=== PATIENT | female | born 1980 | race Caucasian/White ===

== ENCOUNTER 2019-01-24 07:11 | Inpatient (IN) | payer MEDICAID ==
[~2019-01-24] VITALS: Ht 162.6 cm; Wt 87.1 kg
[2019-01-24 08:13] VITALS: BP 110/68; PULSE 86; RESP 18
[2019-01-24 08:14] VITALS: Ht 162.6 cm; Wt 87.1 kg
[2019-01-24] MEDS ORDERED: PREN-93 PO (08:16)
[2019-01-24] MEDS ORDERED: OXYTOCIN 30 UNITS/LR 500 ML IV PRN (08:30)
[2019-01-24] MEDS ORDERED: OXYTOCIN 30 UNITS/LR 500 ML IV SCH ×3 (08:30→22:45)
[2019-01-24] MEDS ORDERED: LIDOCAINE 1% (MPF) 30 ML INJ INJ PRN (08:30)
[2019-01-24] MEDS ORDERED: METHYLERGONOVINE 0.2 MG INJ IM PRN (08:30)
[2019-01-24] MEDS ORDERED: CARBOPROST 250 MCG INJ IM PRN (08:30)
[2019-01-24] MEDS ORDERED: BUTORPHANOL 2 MG INJ IV PRN (08:30)
[2019-01-24] MEDS ORDERED: MISOPROSTOL 200 MCG TAB PR PRN (08:30)
[2019-01-24] MEDS ORDERED: IBUPROFEN 600 MG TAB PO PRN (08:30)
[2019-01-24] MEDS ORDERED: AMPICILLIN 2 GM/NS (PMX) 100 ML IV ONE (08:30)
[2019-01-24] MEDS: LACTATED RINGER'S 1,000 ML IV SCH ×4 (10:00→22:35)
[2019-01-24] MEDS ORDERED: MISOPROSTOL 50 MCG CAPSULE PO SCH (11:00)
[2019-01-24] MEDS: DEXTROSE 5%-LR 1,000 ML IV SCH ×2 (12:59→22:31)
[2019-01-24] MEDS ORDERED: ACCU-CHEK XX SCH (13:30)
[2019-01-24] MEDS: AMPICILLIN 1 GM/NS (PMX) 50 ML IV SCH ×3 (15:00→22:59)
--- NOTE | 2019-01-24 23:44 | HP ---
Date/Time of Note Date/Time of Note DATE: 01/24/19 TIME: 23:40 OB - History Hx of Present Chief Complaint: induction of labor Estimated Due Date: Jan 23, 2019 : 3 Para: 2 Spontaneous : 0 Therapeutic : 0 Care: Good Care Ultrasounds: Normal mid trimester US Obstetrical Complications: Gestational Diabetes Medical Complications: None Past Family/Social History * Past Medical, Surgical, Family and Obstetric Histories reviewed from chart. GBS Status: Positive OB Admission Exam Vital Signs Vital Signs Vital Signs Date Temp Pulse Resp B/P (MAP) Pulse Ox O2 O2 Flow FiO2 Time Delivery Rate 01/24/19 98.1 86 18 110/68 Room Air 08:13 (82) Physical Exam HEENT: WNL Heart: Rhythm Normal Lungs: Clear, Equal Abdomen: WNL Extremities: Normal Reflexes: Normal Cervical Dilatation: 1cm Effacement: 50% Station: -1 Membranes: Intact Heart Rate: 120's Accelerations: Accelerations Present Decelerations: No Decelerations Varibility: Moderate Last 72 hourBlood Glucose Bedside Glucose - 72 Hours Test 01/24/19 08:46 01/24/19 12:58 01/24/19 14:50 01/24/19 17:06 Bedside 87 73 82 82 Glucose mg/dL (70-220) mg/dL (70-220) mg/dL (70-220) mg/dL (70-220) Test 01/24/19 19:01 01/24/19 21:06 Bedside 82 87 Glucose mg/dL (70-220) mg/dL (70-220) Last 72 hours Lab Results CBC & BMP 01/24/19 07:50 OB Assessment/Plan Reason for admission: induction of labor Plan: Induction Induction Method: per Misoprostol Protocol VIRGINIA MORENO MD Jan 24, 2019 23:44
[2019-01-25] MEDS: LACTATED RINGER'S 1,000 ML IV SCH ×2 (00:04→04:56)
[2019-01-25] MEDS: AMPICILLIN 1 GM/NS (PMX) 50 ML IV SCH (03:22)
--- NOTE | 2019-01-25 03:57 | PREAC ---
Date/Time of Note Date/Time of Note DATE: 01/25/19 TIME: 03:56 Anesthesia Eval and Record Evaluation Time Pre-Procedure Interview DATE: 01/25/19 TIME: 03:56 Age 38 Sex female NPO: 8 hrs Preoperative diagnosis intrauterine Planned procedure labor epidural Past Medical History Past Medical History: Includes : : (3), Para: (2), Gestational age: (40.2), Gestational diabetes Surgery & Anesthesia Issues No known issue Meds Anticoagulation: No Beta Johny within 24 hr: No Reason Beta Johny not given: Pt. not on B-Johny Reported Medications Vit No.124/Iron/FA ( Vitamin Tablet) 1 Each Tablet, 1 EACH PO DAILY, TAB 01/24/19 Current Medications Lactated Ringer's 1,000 ml @ 125 mls/hr Q8H IV Last administered on 01/24/19at 10:00; Admin Dose 125 MLS/HR; Start 01/24/19 at 08:04 Ampicillin 50 ml @ 100 mls/hr Q4H IV Last administered on 01/25/19at 03:22; Admin Dose 100 MLS/HR; Start 01/24/19 at 12:30 Butorphanol Tartrate (Stadol) 2 mg Q2H PRN IV .PAIN; Start 01/24/19 at 08:30 Lidocaine (Xylocaine 1% (Mpf)) 30 ml ONCE PRN INJ .EPISIOTOMY; Start 01/24/19 at 08:30 Oxytocin/Lactated Ringer's 500 ml @ 500 mls/hr ONCE POST IV ; Start 01/24/19 at 08:30 Oxytocin/Lactated Ringer's 500 ml @ 125 mls/hr POST IV ; Start 01/24/19 at 08:30 Ibuprofen (Motrin) 600 mg ONCE PRN PO .PAIN 1-5; Start 01/24/19 at 08:30 Oxytocin/Lactated Ringer's 500 ml @ 0 mls/hr ONCE PRN IV .VAGINAL BLEEDING; Start 01/24/19 at 08:30 Methylergonovine Maleate (Methergine) 0.2 mg ONCE PRN IM .VAGINAL BLEEDING; Start 01/24/19 at 08:30 Carboprost Tromethamine (Hemabate) 250 mcg ONCE PRN IM .VAGINAL BLEEDING; Start 01/24/19 at 08:30 Misoprostol (Cytotec) 1,000 mcg ONCE PRN DE .VAGINAL BLEEDING; Start 01/24/19 at 08:30 Diagnostic Test (Pha) (Accu-Chek) 1 ea FBSPP XX ; Start 01/24/19 at 13:30 Lactated Ringer's 1,000 ml @ 125 mls/hr Q8H IV ; Start 01/24/19 at 12:36 Dextrose/Lactated Ringer's 1,000 ml @ 125 mls/hr Q8H IV Last administered on 01/24/19at 22:31; Admin Dose 125 MLS/HR; Start 01/24/19 at 12:36 Oxytocin/Lactated Ringer's 500 ml @ 0 mls/hr FOR AUGMENTATION IV Last administered on 01/24/19at 22:54; Admin Dose 1 MLS/HR; Start 01/24/19 at 22:45 Meds reviewed: Yes Allergies Coded Allergies: No Known Allergy (Unverified , 01/24/19) Allergies Reviewed: Yes Labs/Studies Labs Reviewed: Reviewed by anesthesiologist Result Diagram: 01/24/19 0750 Laboratory Tests 01/24/19 07:50 Blood Bank Test 01/24/19 07:50 Antibody Screen NEGATIVE Blood Type A POSITIVE Rh Immune Globulin Candidate NO test: N/A Pre-procedure Exam Last vitals Vital Signs Date Temp Pulse Resp B/P (MAP) Pulse Ox O2 O2 Flow FiO2 Time Delivery Rate 01/24/19 98.1 86 18 110/68 Room Air 08:13 (82) Airway: Adequate mouth opening, Adequate thyromental dist Mallampati: Mallampati II Teeth: Normal Lung: Normal Heart: Normal ASA Physical Status ASA physical status: 2 Emergency: None Planned Anesthetic Neuraxial: Epidural Planned Pain Management Epidural, Parenteral pain med Pre-operative Attestations Prior to commencing anesthesia and surgery, the patient was re-evaluated, there was verification of: *The patient's identity *The results of appropriate recent lab work and preoperative vital signs *The above evaluation not changing prior to induction *Anesthetic plan, risk benefits, alternative and complications discussed with patient/family; questions answered; patient/family understands, accepts and wishes to proceed. TERRENCE RODRIGUEZ MD Jan 25, 2019 03:57
[2019-01-25] MEDS ORDERED: DIPHENHYDRAMINE 50 MG INJ IV PRN (04:00)
[2019-01-25] MEDS ORDERED: NALOXONE (0.4 MG/ML) INJ IV PRN (04:00)
[2019-01-25] MEDS ORDERED: ONDANSETRON 4 MG INJ IV PRN (04:00)
[2019-01-25] MEDS ORDERED: FENTAnyl 2MCG/ML-ROPIV 0.2% 100 ML BAG EPI SCH (04:00)
[2019-01-25] MEDS ORDERED: FENTAnyl 2MCG/ML-ROPIV 0.2% 100 ML ONE (04:06)
--- NOTE | 2019-01-25 05:38 | PAC ---
Date/Time of Note Date/Time of Note DATE: 01/25/19 TIME: 05:38 Post-Anesthesia Notes Post-Anesthesia Note Last documented vital signs Vital Signs Date Temp Pulse Resp B/P (MAP) Pulse Ox O2 O2 Flow FiO2 Time Delivery Rate 01/24/19 98.1 86 18 110/68 Room Air 08:13 (82) Activity: WNL Respiratory function: WNL Cardiovascular function: WNL Mental status: Baseline Pain reasonably controlled: Yes Hydration appropriate: Yes Nausea/Vomiting absent: Yes Comments Bp: 103/62 HR: 78 RR: 15 T: 98 SaO2: 99% TERRENCE RODRIGUEZ MD Jan 25, 2019 05:38
--- NOTE | 2019-01-25 07:46 | LDN ---
Date/Time of Note Date/Time of Note DATE: 01/25/19 TIME: 07:45 Delivery Summary Weeks of Gestation 40 weeks and 2 days Placenta Delivered: Spontaneously Meconium: none Episiotomy: No Anesthesia type: Epidural Estimated blood loss: 100 Sponge & Needle done & correct: Yes All needle counts correct: Yes Any foreign bodies felt in the: No Delivery Information Sex Sex: female Apgars 1 Minute: 9 5 Minute: 9 Suctioning Nose & mouth suctioned at loyda: No Delee suction performed: No Umbilical Cord Umbilical cord with: 3 Vessels Cord presentations: no nuchal cord Cord Blood was obtained: Yes Mother & Baby Disposition Disposition Mom & Baby to Maternity; Good: Yes VIRGINIA MORENO MD Jan 25, 2019 07:46
[2019-01-25] MEDS: LACTATED RINGER'S 1,000 ML IV* SCH ×2 (09:43→17:43)
[2019-01-25 09:50] VITALS: BP 105/58; PULSE 87; RESP 18
[2019-01-25] MEDS ORDERED: MISOPROSTOL 200 MCG TAB PR PRN (10:00)
[2019-01-25] MEDS ORDERED: OXYTOCIN 30 UNITS/LR 500 ML IV PRN (10:00)
[2019-01-25] MEDS ORDERED: CARBOPROST 250 MCG INJ IM PRN (10:00)
[2019-01-25] MEDS ORDERED: BENZOCAINE 20% 56 ML SPRAY TOP PRN (10:00)
[2019-01-25] MEDS ORDERED: METHYLERGONOVINE 0.2 MG INJ IM PRN (10:00)
[2019-01-25] MEDS ORDERED: DIBUCAINE 1% 30 GM OINT TOP PRN (10:00)
[2019-01-25] MEDS ORDERED: HYDROCODONE/APAP (5/325) TAB PO PRN (10:00)
[2019-01-25] MEDS ORDERED: WITCH HAZEL/GLYCERIN PAD PR PRN (10:00)
[2019-01-25] MEDS ORDERED: ACETAMINOPHEN 325 MG TAB PO PRN (10:00)
[2019-01-25 12:00] VITALS: BP 104/57; PULSE 95; RESP 18
[2019-01-25] MEDS: IBUPROFEN 600 MG TAB PO SCH ×3 (12:00→23:54)
[2019-01-25 15:55] VITALS: BP 113/58; PULSE 90; RESP 18
[2019-01-25 20:00] VITALS: BP 100/55; PULSE 86; RESP 19
[2019-01-25] MEDS: SENNA/DOCUSATE NA (8.6MG/50MG) TAB PO SCH (23:54)
[2019-01-26 04:00] VITALS: BP 111/74; PULSE 78; RESP 18
[2019-01-26] MEDS: IBUPROFEN 600 MG TAB PO SCH ×3 (05:51→17:50)
[2019-01-26 08:00] VITALS: BP 109/54; PULSE 77; RESP 16
[2019-01-26] MEDS: SENNA/DOCUSATE NA (8.6MG/50MG) TAB PO SCH ×2 (09:35→21:00)
[2019-01-26 16:00] VITALS: BP 130/67; PULSE 74; RESP 16
--- NOTE | 2019-01-26 17:51 | DS ---
Date/Time of Note Date/Time of Note DATE: 01/26/19 TIME: 17:51 Obstetrical Discharge Record Final Diagnosis Final Diagnosis: Term delivered Vaginal Delivery Obstetrical Delivery: Spontaneous Complications Gestational Diabetes Induction: Yes Condition on Discharge Physical Assessment Voiding: Yes Bowel Movement: Yes Breast: Soft, non-tender, Filling Fundus: Firm Calf Tenderness: No Patient Condition: Stable VIRGINIA MORENO MD Jan 26, 2019 17:51
[2019-01-26 20:00] VITALS: BP_SYST 106; BP_SYST 110; BP_DIAS 61; BP_DIAS 75; PULSE 111; PULSE 83; RESP 18
[2019-01-27] MEDS: IBUPROFEN 600 MG TAB PO SCH ×3 (00:32→12:12)
[2019-01-27 04:00] VITALS: BP 111/65; PULSE 80; RESP 19
[2019-01-27 08:00] VITALS: BP 114/58; PULSE 87; RESP 20
[2019-01-27] MEDS ORDERED: DIPHTH/TET/ACEL PERTUSS (ADULT) 0.5 ML VIAL IM* ONE (09:00)
[2019-01-27] MEDS: SENNA/DOCUSATE NA (8.6MG/50MG) TAB PO SCH (09:56)
== END 2019-01-27 15:30 | disposition home or self-care (01) | DRG 807 ==
LOC: L-D 07:11 → PP1 01-25 09:56
PROVIDERS: ADMIT Obstetrics & Gynecology; ATTEND Obstetrics & Gynecology
PROC: 3E033VJ Introduction of Other Hormone into Peripheral Vein, Percutaneous Approach (ICD-10-PCS; 2019-01-24)
PROC: 10E0XZZ Delivery of Products of Conception, External Approach (ICD-10-PCS; principal; 2019-01-25)
DX: O24.429 Gestational diabetes mellitus in childbirth, unspecified control (principal); Z37.0 Single live birth; Z3A.40 40 weeks gestation of pregnancy
CPT/HCPCS: 62319; 76815; 82962; 85025; 85610; 85730; 86592; 86850; 86900; 86901; 87340; J0290; J2590; J3010; J7120; J7121

== ENCOUNTER 2019-01-30 20:28 | Emergency (ER) | payer SELFPAY ==
[~2019-01-30] VITALS: Wt 82.1 kg
[~2019-01-30 20:28] MED LIST: PREN-93 PO
[2019-01-30 20:52] VITALS: BP 160/76; PULSE 87; RESP 18
== END 2019-01-31 02:36 | disposition left against medical advice (07) ==
LOC: FTE 20:28
DX: Z53.21 Procedure and treatment not carried out due to patient leaving prior to being seen by health care provider (principal)

== ENCOUNTER 2019-02-02 15:41 | Emergency (ER) | payer MEDICAID ==
[~2019-02-02] VITALS: Ht 167.6 cm; Wt 80.1 kg
[2019-02-02 15:48] VITALS: Ht 167.6 cm; Wt 80.1 kg
[2019-02-02] MEDS ORDERED: SODIUM CHLORIDE 0.9% 1L BAG IV* STA (16:56)
[2019-02-02] MEDS ORDERED: IBUPROFEN 600 MG TAB PO ONE (17:00)
--- NOTE | 2019-02-02 17:08 | ERD ---
ER Documentation Chief Complaint Chief Complaint Complains of a fever x 2 days 1 week post HPI This is a 38-year-old woman complaining of fever times 2 days status post vaginal delivery 1 week ago. She states both of her breasts are swollen but denies redness to the breasts or nipple discharge. She denies abdominal pain or dysuria, no cough or sore throat, no chest pain or shortness of breath. ROS All systems reviewed and are negative except as per history of present illness. Medications Home Meds Active Scripts Cephalexin* (Keflex*) 500 Mg Capsule, 500 MG PO TIDM A for 5 Days, CAP Prov:STACEY ESTRADA MD 02/02/19 Ibuprofen* (Motrin*) 600 Mg Tab, 600 MG PO Q8 PRN for FEVER, #30 TAB Prov:STACEY ESTRADA MD 02/02/19 Reported Medications Vit No.124/Iron/FA ( Vitamin Tablet) 1 Each Tablet, 1 EACH PO DAILY, TAB 01/24/19 Allergies Allergies: Coded Allergies: No Known Allergy (Unverified , 02/02/19) PMhx/Soc Medical and Surgical Hx: pt denies Medical Hx, pt denies Surgical Hx Hx Alcohol Use: No Hx Substance Use: No Hx Tobacco Use: No Smoking Status: Never smoker Physical Exam Vitals Vital Signs Date Temp Pulse Resp B/P (MAP) Pulse Ox O2 O2 Flow FiO2 Time Delivery Rate 02/02/19 99.2 94 17 118/71 99 Room Air 18:31 (87) 02/02/19 99.2 95 17 125/76 99 Room Air 18:10 (92) 02/02/19 100.9 17:03 02/02/19 100.9 132 20 137/74 93 15:48 (95) Physical Exam GENERAL: Well-developed, well-nourished, well-hydrated, febrile, nontoxic in appearance HEENT: Moist mucous membranes, pink conjunctiva, no cervical spine tenderness or step-off deformities, no goiter, no jaundice or icterus, extraocular movements intact without pain. No submandibular induration, and no pharyngeal erythema NEURO: Alert and oriented 3, cranial nerves II through XII intact bilaterally, pupils equal round reactive to light, no focal deficits or facial asymmetry, sensation intact distally Strength 5/5 in upper and lower extremities bilaterally CARDIAC: Tachycardic and regular, no murmurs rubs or gallops LUNGS: Clear bilaterally no wheezing crackles or stridor ABDOMEN: Soft nontender, no guarding, no rigidity, no rebound, no psoas sign no obturator sign. SKIN: Warm and dry to touch, no abrasions, contusions, or hematomas. No obvious mastitis noted Result Diagram: 02/02/19 1622 02/02/19 1622 Results 24 hrs Laboratory Tests Test 02/02/19 16:22 White Blood Count 23.3 10^3/ul Red Blood Count 4.85 10^6/ul Hemoglobin 13.8 g/dl Hematocrit 42.5 % Mean Corpuscular Volume 87.6 fl Mean Corpuscular Hemoglobin 28.5 pg Mean Corpuscular Hemoglobin Concent 32.5 g/dl Red Cell Distribution Width 13.0 % Platelet Count 311 10^3/UL Mean Platelet Volume 9.2 fl Immature Granulocytes % 1.200 % Neutrophils % 87.6 % Lymphocytes % 5.0 % Monocytes % 5.7 % Eosinophils % 0.2 % Basophils % 0.3 % Nucleated Red Blood Cells % 0.0 /100WBC Immature Granulocytes # 0.270 10^3/ul Neutrophils # 20.5 10^3/ul Lymphocytes # 1.2 10^3/ul Monocytes # 1.3 10^3/ul Eosinophils # 0.0 10^3/ul Basophils # 0.1 10^3/ul Nucleated Red Blood Cells # 0.0 10^3/ul Urine Color RONNIE Urine Clarity SLIGHTLY CLOUDY Urine pH 6.0 Urine Specific [place] 1.025 Urine Ketones NEGATIVE mg/dL Urine Nitrite NEGATIVE mg/dL Urine Bilirubin NEGATIVE mg/dL Urine Urobilinogen NEGATIVE mg/dL Urine Leukocyte Esterase 1+ Marta/ul Urine Microscopic RBC > 182 /HPF Urine Microscopic WBC 39 /HPF Urine Squamous Epithelial Cells MODERATE /HPF Urine Mucus MODERATE /HPF Urine Hemoglobin 3+ mg/dL Urine Glucose NEGATIVE mg/dL Urine Total Protein 1+ mg/dl Sodium Level 137 mmol/L Potassium Level 4.1 mmol/L Chloride Level 101 mmol/L Carbon Dioxide Level 25 mmol/L Anion Gap 11 Blood Urea Nitrogen 13 mg/dl Creatinine 0.56 mg/dl Est Glomerular Filtrat Rate mL/min > 60 mL/min Glucose Level 90 mg/dl Lactic Acid Level 1.4 mmol/L Calcium Level 9.5 mg/dl Total Bilirubin 0.6 mg/dl Direct Bilirubin 0.00 mg/dl Indirect Bilirubin 0.6 mg/dl Aspartate Amino Transf (AST/SGOT) 24 IU/L Alanine Aminotransferase (ALT/SGPT) 21 IU/L Alkaline Phosphatase 94 IU/L Total Protein 7.9 g/dl Albumin 4.2 g/dl Globulin 3.70 g/dl Albumin/Globulin Ratio 1.13 Lipase 41 U/L Current Medications Medications Dose Sig/Sheryl Start Time Status Last (Trade) Ordered Route PRN Stop Time Admin Dose Reason Admin Sodium 2,000 ml BOLUS OVER 2 02/02/19 DC 02/02/19 Chloride HOURS STAT 16:56 17:03 (NS) IV* 02/02/19 16:58 Ibuprofen 600 mg ONCE ONCE 02/02/19 DC 02/02/19 (Motrin) PO 17:00 17:03 02/02/19 17:01 Ceftriaxone 50 ml @ ONCE ONCE 02/02/19 DC 02/02/19 Sodium 100 mls/hr IVPB 18:00 18:56 02/02/19 18:29 Procedures/MDM IV line was established patient was placed on conveyor monitor rhythm strip revealed a sinus tachycardia at 110 bpm with upright P and T waves. Patient was febrile, blood and urine cultures have been ordered results are pending I will follow-up. I do not suspect sepsis. I administered 2 L normal saline IV and ibuprofen 600 mg p.o. x1 CBC revealed leukocytosis at 23, electrolytes are normal, liver function tests normal, urinalysis positive for infection. Lactic acid level was low and I do not suspect sepsis. Chest X-ray 1V Interpreted by me: Soft Tissue: No acute abnormalities Bones: No acute abnormalities Mediastinum/Cardiac Silhouette/Lungs: No acute abnormalities Nonobstetric pelvic ultrasound was performed, no obvious retained products of conception were noted, but increased vascularity noted to the endometrium consistent with recent and delivery. Please refer to radiologist nasim white for full report. EKG performed, read by me: 93 bpm, normal sinus rhythm, normal axis, no acute ST segment changes, narrow QRS complex, with good R-wave progression in precordial leads. I administered ceftriaxone 1 g IV for acute UTI. Differential diagnoses considered, included but not limited to acute coronary syndrome, pulmonary embolism, aortic dissection, abdominal aortic aneurysm, se psis, stroke, meningitis, encephalitis, pneumonia, appendicitis, cholecystitis, bowel obstruction, pyelonephritis, nephrolithiasis, cystitis, as well as metabolic, hematologic, and electrolyte abnormalities. As well as abscess, cellulitis, fractures, and dislocations. Patient feels much better at this time, and vital signs are normal, symptoms have improved. I did give strict instructions to return to the ED if symptoms continue or worsen, patient will otherwise follow-up with primary care phys ician. Patient understood instructions and agreed to plan. Disclaimer: Inadvertent spelling and grammatical errors are likely due to EHR/dictation software use and do not reflect on the overall quality of patient care. Also, please note that the electronic time recorded on this note does not necessarily reflect the actual time of the patient encounter. Departure Diagnosis: Primary Impression: Acute UTI Condition: STACEY Lin MD Feb 02, 2019 17:08
[2019-02-02] MEDS ORDERED: CEFTRIAXONE 1 GM/50 ML (PMX) 50 ML IVPB ONE (18:00)
[2019-02-02] MEDS ORDERED: IBUP-1542 PO (19:09)
[2019-02-02] MEDS ORDERED: CEPH-443 PO (19:09)
[2019-02-02 20:03] VITALS: BP 123/77; PULSE 91; RESP 17
== END 2019-02-02 20:05 | disposition home or self-care (01) ==
LOC: E/R 15:41
DX: O86.20 Urinary tract infection following delivery, unspecified (principal); B96.89 Other specified bacterial agents as the cause of diseases classified elsewhere; R07.9 Chest pain, unspecified
CPT/HCPCS: 36415; 71045; 76856; 80053; 81001; 83605; 83690; 85025; 87040; 87086; 93005; 96374; J0696; J7030; Z7502; Z7610